=== PATIENT | female | born 1955 | race Asian ===

== ENCOUNTER 2016-12-15 10:29 | Outpatient (CLI) | payer OTHER ==
[2016-12-15 11:00] LABS: BASOPHILS % (AUTO) 0.5 %; EOSINOPHILS % (AUTO) 0.7 %; HCT - HEMATOCRIT 32.6 % (37.0-47.0); HGB - HEMOGLOBIN 10.7 g/dL (12.0-16.0); LYMPHOCYTES # (AUTO) 0.2 10^3/uL (1.5-3.5); LYMPHOCYTES % (AUTO) 3.6 %; MEAN CORPUSCULAR HEMOGLOBIN 30.3 pg (27.0-31.0); MEAN CORPUSCULAR HGB CONC 32.8 g/dL (32.0-36.0); MEAN CORPUSCULAR VOLUME 92.4 fL (81.0-99.0); MEAN PLATELET VOLUME 7.6 fL (7.9-10.8); MONOCYTES # (AUTO) 0.2 10^3/uL (0.0-1.0); MONOCYTES % (AUTO) 3.6 %; NEUTROPHILS # (AUTO) 5.5 10^3/uL (1.5-6.6); NEUTROPHILS % (AUTO) 91.6 %; RED BLOOD COUNT 3.53 10^6/uL (4.20-5.40); RED CELL DISTRIBUTION WIDTH 16.8 % (12.0-15.0)
[2016-12-15 11:01] LABS: BILIRUBIN,URINE NEGATIVE (NEGATIVE)
[2016-12-15 11:04] LABS: UA CHARGE (STRIP ONLY) YES; UR CULTURE IF IND NOT INDICATED
[2016-12-15 11:19] LABS: BILIRUBIN,TOTAL 0.4 mg/dL (0.2-1.0); CREATININE 1.1 mg/dL (0.4-1.0); POTASSIUM 4.2 mmol/L (3.5-5.0); TOTAL PROTEIN 7.1 g/dL (6.7-8.2)
== END 2016-12-15 10:30 | disposition home or self-care (01) ==
LOC: LAB 10:29
PROVIDERS: ATTEND Physician Assistant Medical
DX: R50.9 Fever, unspecified (principal)
CPT/HCPCS: 36415; 80053; 81001; 81003; 83690; 85025; 85651; 86140; 87040; 87086

== ENCOUNTER 2017-09-09 06:26 | Emergency (ER) | payer OTHER ==
[2017-09-09 07:03] LABS: BASOPHILS % (AUTO) 0.6 %; EOSINOPHILS % (AUTO) 0.6 %; LYMPHOCYTES # (AUTO) 0.2 10^3/uL (1.5-3.5); LYMPHOCYTES % (AUTO) 3.7 %; MEAN CORPUSCULAR HGB CONC 31.4 g/dL (32.0-36.0); MEAN CORPUSCULAR VOLUME 95.4 fL (81.0-99.0); MEAN PLATELET VOLUME 8.3 fL (7.9-10.8); MONOCYTES # (AUTO) 0.3 10^3/uL (0.0-1.0); MONOCYTES % (AUTO) 5.4 %; NEUTROPHILS # (AUTO) 5.6 10^3/uL (1.5-6.6); NEUTROPHILS % (AUTO) 89.7 %; PLT - PLATELET COUNT 252 10^3/uL (130-450); RED BLOOD COUNT 3.34 10^6/uL (4.20-5.40); RED CELL DISTRIBUTION WIDTH 16.1 % (12.0-15.0); WHITE BLOOD COUNT 6.2 x10^3/uL (4.8-10.8)
--- NOTE | 2017-09-09 07:26 | XRAY Preliminary Report ---
Exam: XR KNEE 2 VIEW RT IMPRESSION: 1. Moderate size joint effusion. Infection is not excluded. 2. Chondrocalcinosis in the lateral compartment. [facility] SITE ID: [id number]
--- NOTE | 2017-09-09 07:26 | XRAY Report ---
EXAM: RIGHT KNEE RADIOGRAPHY EXAM DATE: 09/09/2017 07:09 AM. CLINICAL HISTORY: Knee swelling. COMPARISON: None. TECHNIQUE: 2 views. FINDINGS: Bones: Normal. No fractures or bone lesions. Joints: Moderate size joint effusion. Chondrocalcinosis in the lateral compartment. Soft Tissues: Normal. No soft tissue swelling. IMPRESSION: 1. Moderate size joint effusion. Infection is not excluded. 2. Chondrocalcinosis in the lateral compartment. [facility] Referring Provider Line: [phone] SITE ID: [id number]
[2017-09-09 07:30] LABS: ALBUMIN 3.3 g/dL (3.2-5.5); ALBUMIN/GLOBULIN RATIO 0.9 (1.0-2.2); BILIRUBIN,TOTAL 0.5 mg/dL (0.2-1.0); CALCIUM 8.9 mg/dL (8.5-10.3); CREATININE 1.2 mg/dL (0.4-1.0); TOTAL PROTEIN 7.1 g/dL (6.7-8.2)
--- NOTE | 2017-09-09 08:09 | ED Physician Documentation ---
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 renal transplant on immunosuppressants to ER today with a sollen R knee X three days states hx of water on her knee and thinks she might have injured or tweaked it but there was erythema so she was concerned about infection, called her doctors at [facility] and directed to ED recent 1 night overstay at [facility] but otherwsise very active job walking all day long no calf pain or popliteal pain Review of Systems Constitutional: denies: Fever Cardiac: denies: Chest pain / pressure Respiratory: denies: Dyspnea Musculoskeletal: reports: Joint swelling Immunocompromised: reports: Immunocompromised PD PAST MEDICAL HISTORY - Past Medical History Past Medical History: Yes Cardiovascular: High cholesterol, Arrhythmia GI: Diverticulitis HEENT: Chronic vision loss Psych: Depression Musculoskeletal: Gout Derm: Eczema - Past Surgical History Past Surgical History: Yes General: Cholecystectomy HEENT: Tonsil/Adenoidectomy - Present Medications Home Medications: Ambulatory Orders Medication Instructions Recorded Confirmed Aspirin [Aspirin EC] 1 tab PO DAILY 09/09/17 09/09/17 Atorvastatin [Lipitor] 10 mg PO DAILY 09/09/17 09/09/17 Duloxetine HCl 60 mg PO DAILY 09/09/17 09/09/17 Krill/Om-3/Dha/Epa/Phospho/Ast 1 cap PO DAILY 09/09/17 09/09/17 [Krill Oil 500 mg Softgel] Omeprazole 20 mg PO BID 09/09/17 09/09/17 Prednisone 1 tab PO DAILY 09/09/17 09/09/17 Pregabalin [Lyrica] 50 mg PO DAILY PRN 09/09/17 09/09/17 Tracolimus 4 mg PO BID 09/09/17 azaTHIOprine [Azathioprine] 1 tab PO BID 09/09/17 09/09/17 - Allergies Allergies/Adverse Reactions: Allergies Allergy/AdvReac Type Severity Reaction Status Date / Time contrast dye Allergy Rash Uncoded 09/09/17 06:53 - Social History Does the pt smoke?: No Smoking Status: Never smoker Does the pt drink ETOH?: Yes Does the pt have substance abuse?: No - Immunizations Immunizations are current?: No Immunizations: TDAP >10years/unknown PD ED PE NORMAL - Vitals Vital signs reviewed: Yes - Cardiac Cardiac: RRR - Respiratory Respiratory: No respiratory distress, Clear bilaterally - Extremities Extremities: Other (R knee with moderate prepatellar and suprapatellar effusion , no popliteal TTP or cord, cald NT and not swollen, no erythema or warmth at thos time (there is a tlingit & haida drawn around where there was erythema earlier over the patella but it has resiolved), able to fully range the joint with no pain, MVS intact) Results - Vitals Vitals: Vital Signs - 24 hr 09/09/17 06:35 Temperature 37.1 C Heart Rate 68 Respiratory 18 Rate Blood Pressure 129/117 H O2 Saturation 100 Oxygen O2 Source Room air - Labs Labs: Laboratory Tests 09/09/17 09/09/17 09/09/17 06:58 06:58 06:58 WBC 6.2 RBC 3.34 L Hgb 10.0 L Hct 31.8 L MCV 95.4 MCH 30.0 MCHC 31.4 L RDW 16.1 H Plt Count 252 MPV 8.3 Neut # 5.6 Lymph # 0.2 L [place] # 0.3 Eos # 0.0 Baso # 0.0 Absolute Nucleated RBC 0.00 Nucleated RBC % 0.1 ESR 103 H Sodium 137 Potassium 4.8 Chloride 106 Carbon Dioxide 22 Anion Gap 9.0 BUN 36 H Creatinine 1.2 H Estimated GFR (MDRD) 46 L Glucose 129 H Calcium 8.9 Total Bilirubin 0.5 AST 11 ALT 10 Alkaline Phosphatase 109 C-Reactive Protein 7.0 H Total Protein 7.1 Albumin 3.3 Globulin 3.8 Albumin/Globulin Ratio 0.9 L Lipase 15 L - Rads (name of study) R knee Radiology: See rad report (moderate jt effusion, chondrolcalcinsosis lateral cmpt) PD MEDICAL DECISION MAKING - ED course ED course: based on exam pt does not have a septic knee or DVT being immunosuppressed infection is certainly a concern - but there is no fever no redness no warmth and good ROM s pain - not c/w septic knee and would risk introducing infection by tapping the knee in an immunopsupressed pt 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 a 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 but not seen the pt - ordered ESR and CRP which are very elevated but again clinically this does not look like cellulitis or a septic knee both pt and I are working today so I will check on her periodically but based on exam at this moment feel safe to dc Departure - Departure Disposition: 01 Home, Self Care Clinical Impression: Knee effusion, right Condition: Good Instructions: ED Effusion Knee Comments: Based on the exam it looks like you have an effusion in you knee joint but it does not appear infected at this time (not red or warm at this time and able to move the joint without significant pain or limitation) I am concerned that it was red last night and that some of your inflammatory markers are elevated. Based on the exam right now I would not recommend tapping the joint - this could introduce an infection since you are immune suppressed But if the redness comes back, please come see me In fact please let me take a look at you knee again before you go home from your shift today Wear the knee sleeve and apply some ice for 20 minutes every 4 hr today
[2017-09-09 08:40] VITALS: BP 133/78
== END 2017-09-09 08:39 | disposition home or self-care (01) ==
LOC: ED 06:26
DX: M25.461 Effusion, right knee (principal); Z94.0 Kidney transplant status; Z79.899 Other long term (current) drug therapy; E78.00 Pure hypercholesterolemia, unspecified; I49.9 Cardiac arrhythmia, unspecified; M10.9 Gout, unspecified; Z79.82 Long term (current) use of aspirin
CPT/HCPCS: 36415; 80053; 83690; 85025; 85651; 86140; 99283

== ENCOUNTER 2018-04-18 11:11 | Outpatient (CLI) | payer OTHER ==
[2018-04-18 13:55] LABS: CALCIUM 9.1 mg/dL (8.5-10.3); CREATININE 1.2 mg/dL (0.4-1.0)
== END 2018-04-18 11:12 | disposition home or self-care (01) ==
LOC: LAB.N 11:11
PROVIDERS: ATTEND Internal Medicine Nephrology
DX: Z94.0 Kidney transplant status (principal)
CPT/HCPCS: 36415; 80048

== ENCOUNTER 2018-04-20 07:23 | Outpatient (CLI) | payer OTHER ==
[2018-04-20 08:20] LABS: CALCIUM 9.3 mg/dL (8.5-10.3); CREATININE 1.1 mg/dL (0.4-1.0)
== END 2018-04-20 07:24 | disposition home or self-care (01) ==
LOC: LAB 07:23
PROVIDERS: ATTEND Internal Medicine Nephrology
DX: Z94.0 Kidney transplant status (principal)
CPT/HCPCS: 36415; 80048

== ENCOUNTER 2018-04-25 13:29 | Outpatient (CLI) | payer OTHER ==
[2018-04-25 13:58] LABS: CALCIUM 8.8 mg/dL (8.5-10.3)
== END 2018-04-25 13:30 | disposition home or self-care (01) ==
LOC: LAB 13:29
PROVIDERS: ATTEND Internal Medicine Nephrology
DX: Z94.0 Kidney transplant status (principal)
CPT/HCPCS: 36415; 80048

== ENCOUNTER 2018-08-08 08:00 | Outpatient (CLI) | payer BC, OTHER ==
[2018-08-08 16:27] LABS: BASOPHILS % (AUTO) 0.3 %; EOSINOPHILS % (AUTO) 0.1 %; HGB - HEMOGLOBIN 9.2 g/dL (12.0-16.0); LYMPHOCYTES # (AUTO) 0.2 10^3/uL (1.5-3.5); LYMPHOCYTES % (AUTO) 2.5 %; MEAN CORPUSCULAR HGB CONC 31.7 g/dL (32.0-36.0); MEAN CORPUSCULAR VOLUME 88.4 fL (81.0-99.0); MEAN PLATELET VOLUME 9.4 fL (7.9-10.8); MONOCYTES # (AUTO) 0.2 10^3/uL (0.0-1.0); MONOCYTES % (AUTO) 2.4 %; NEUTROPHILS # (AUTO) 6.4 10^3/uL (1.5-6.6); NEUTROPHILS % (AUTO) 94.7 %; PLT - PLATELET COUNT 244 10^3/uL (130-450); RED BLOOD COUNT 3.27 10^6/uL (4.20-5.40); RED CELL DISTRIBUTION WIDTH 16.8 % (12.0-15.0); WHITE BLOOD COUNT 6.8 x10^3/uL (4.8-10.8)
[2018-08-08 16:35] LABS: ALBUMIN 3.3 g/dL (3.2-5.5); ALBUMIN/GLOBULIN RATIO 0.8 (1.0-2.2); BILIRUBIN,TOTAL 0.2 mg/dL (0.2-1.0); CREATININE 1.1 mg/dL (0.4-1.0); CRP - C-REACTIVE PROTEIN 6.1 mg/dL (0-1.0); MAGNESIUM 1.9 mg/dL (1.7-2.8); TOTAL PROTEIN 7.4 g/dL (6.7-8.2)
== END 2018-08-08 23:59 ==
LOC: LAB.R 08:00
PROVIDERS: ATTEND Nurse Practitioner Primary Care
DX: R53.83 Other fatigue (principal); M25.511 Pain in right shoulder; M79.10 Myalgia, unspecified site
CPT/HCPCS: 80053; 83735; 85025; 85651; 86140

== ENCOUNTER 2018-08-15 08:00 | Outpatient (CLI) | payer BC ==
[2018-08-15 20:01] LABS: BASOPHILS % (AUTO) 0.4 %; HGB - HEMOGLOBIN 9.1 g/dL (12.0-16.0); LYMPHOCYTES # (AUTO) 0.2 10^3/uL (1.5-3.5); LYMPHOCYTES % (AUTO) 3.6 %; MEAN CORPUSCULAR HEMOGLOBIN 27.9 pg (27.0-31.0); MEAN CORPUSCULAR HGB CONC 30.7 g/dL (32.0-36.0); MEAN CORPUSCULAR VOLUME 90.8 fL (81.0-99.0); MEAN PLATELET VOLUME 8.9 fL (7.9-10.8); MONOCYTES # (AUTO) 0.3 10^3/uL (0.0-1.0); MONOCYTES % (AUTO) 4.8 %; NEUTROPHILS # (AUTO) 5.4 10^3/uL (1.5-6.6); NEUTROPHILS % (AUTO) 91.2 %; RED BLOOD COUNT 3.27 10^6/uL (4.20-5.40); RED CELL DISTRIBUTION WIDTH 17.3 % (12.0-15.0); WHITE BLOOD COUNT 5.9 x10^3/uL (4.8-10.8)
[2018-08-15 20:18] LABS: PLATELET ESTIMATE, MANUAL NORMAL (130-450,000) (NORMAL); PLATELET MORPHOLOGY PLATELET CLUMPING (NORMAL); RBC MORPHOLOGY (MULTIPLE) NORMAL APPEARANCE (NORMAL)
[2018-08-15 20:20] LABS: ALBUMIN 3.2 g/dL (3.2-5.5); ALBUMIN/GLOBULIN RATIO 0.8 (1.0-2.2); BILIRUBIN,TOTAL 0.5 mg/dL (0.2-1.0); CALCIUM 8.9 mg/dL (8.5-10.3); CREATININE 1.2 mg/dL (0.4-1.0); TOTAL PROTEIN 7.2 g/dL (6.7-8.2)
== END 2018-08-15 23:59 ==
LOC: LAB.N 08:00
PROVIDERS: ATTEND Internal Medicine Nephrology
DX: Z51.81 Encounter for therapeutic drug level monitoring (principal); Z09 Encounter for follow-up examination after completed treatment for conditions other than malignant neoplasm; Z94.0 Kidney transplant status
CPT/HCPCS: 36415; 80053; 85025

== ENCOUNTER 2018-08-17 08:25 | Outpatient (CLI) | payer BC ==
[2018-08-17 13:12] LABS: BILIRUBIN,URINE NEGATIVE (NEGATIVE); GLUCOSE, URINE (UA) NEGATIVE (NEGATIVE); KETONES,URINE (UA) NEGATIVE (NEGATIVE); LEUKOCYTE ESTERASE, URINE NEGATIVE (NEGATIVE); NITRITE,URINE NEGATIVE (NEGATIVE); OCCULT BLOOD,URINE NEGATIVE (NEGATIVE); PROTEIN,URINE NEGATIVE (NEGATIVE); UROBILINOGEN,URINE 0.2 (NORMAL) E.U./dL (NORMAL)
[2018-08-17 13:20] LABS: BACTERIA,URINE None Seen /HPF (None Seen); CLARITY,URINE CLEAR (CLEAR); RBC,URINE None Seen /HPF (0-5); SQUAMOUS EPITHELIAL CELL,UR NONE SEEN (<= Few)
== END 2018-08-17 08:26 | disposition home or self-care (01) ==
LOC: LAB 08:25
PROVIDERS: ATTEND Internal Medicine Nephrology
DX: Z51.81 Encounter for therapeutic drug level monitoring (principal); Z94.0 Kidney transplant status
CPT/HCPCS: 36415; 80197; 81001; 87086

== ENCOUNTER 2018-08-28 13:16 | Outpatient (CLI) | payer BC ==
[2018-08-28 13:45] LABS: CALCIUM 9.4 mg/dL (8.5-10.3)
[2018-08-28 16:03] LABS: CREATININE 1.4 mg/dL (0.4-1.0)
== END 2018-08-28 13:17 | disposition home or self-care (01) ==
LOC: LAB 13:16
PROVIDERS: ATTEND Internal Medicine Nephrology
DX: Z94.0 Kidney transplant status (principal)
CPT/HCPCS: 36415; 80048

== ENCOUNTER 2019-01-09 12:15 | Emergency (ER) | payer BC ==
[2019-01-09 12:56] LABS: BASOPHILS % (AUTO) 0.3 %; EOSINOPHILS % (AUTO) 0.1 %; HGB - HEMOGLOBIN 11.7 g/dL (12.0-16.0); LYMPHOCYTES # (AUTO) 0.3 10^3/uL (1.5-3.5); LYMPHOCYTES % (AUTO) 4.2 %; MEAN CORPUSCULAR HEMOGLOBIN 26.8 pg (27.0-31.0); MEAN CORPUSCULAR HGB CONC 28.9 g/dL (32.0-36.0); MEAN CORPUSCULAR VOLUME 92.7 fL (81.0-99.0); MEAN PLATELET VOLUME 11.6 fL (7.9-10.8); MONOCYTES # (AUTO) 0.3 10^3/uL (0.0-1.0); MONOCYTES % (AUTO) 3.3 %; NEUTROPHILS # (AUTO) 7.1 10^3/uL (1.5-6.6); NEUTROPHILS % (AUTO) 91.8 %; RED BLOOD COUNT 4.37 10^6/uL (4.20-5.40); RED CELL DISTRIBUTION WIDTH 16.1 % (12.0-15.0); WHITE BLOOD COUNT 7.7 x10^3/uL (4.8-10.8)
[2019-01-09 13:06] LABS: INR 1.3 (0.8-1.2)
[2019-01-09 13:10] LABS: ALBUMIN 4.4 g/dL (3.2-5.5); BILIRUBIN,TOTAL 0.7 mg/dL (0.2-1.0); CALCIUM 10.2 mg/dL (8.5-10.3); TOTAL PROTEIN 8.9 g/dL (6.7-8.2)
--- NOTE | 2019-01-09 13:36 | ED Physician Documentation ---
History of Present Illness - Stated complaint Stated Complaint: INTESTINAL DISTRESS - Chief complaint Chief Complaint: Abd Pain - History obtained from History obtained from: Patient - History of Present Illness Timing: How many days ago (3) Pain level max: 0 Pain level now: 0 - Additonal information Additional information: 63-year-old female presents to the emergency department with diarrhea for the past 3 days. States going 7-8 times per day. Today started having blood in the diarrhea. No fevers. She is immunocompromised. No abdominal pain. No vomiting. Nothing makes it better or worse. She did eat steak on Monday. Review of Systems Constitutional: denies: Fever, Chills Nose: denies: Rhinorrhea / runny nose, Congestion Cardiac: denies: Chest pain / pressure Respiratory: denies: Cough GI: reports: Diarrhea. 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 immuno suppressed r/t kidnew transplant - Past Surgical History Past Surgical History: Yes General: Cholecystectomy HEENT: Tonsil/Adenoidectomy - Present Medications Home Medications: Ambulatory Orders Medication Instructions Recorded Confirmed Aspirin [Aspirin EC] 1 tab PO DAILY 09/09/17 09/09/17 Atorvastatin [Lipitor] 10 mg PO DAILY 09/09/17 09/09/17 Duloxetine HCl 60 mg PO DAILY 09/09/17 09/09/17 Krill/Om-3/Dha/Epa/Phospho/Ast 1 cap PO DAILY 09/09/17 09/09/17 [Krill Oil 500 mg Softgel] Omeprazole 20 mg PO BID 09/09/17 09/09/17 Prednisone 1 tab PO DAILY 09/09/17 09/09/17 Pregabalin [Lyrica] 50 mg PO DAILY PRN 09/09/17 09/09/17 Tracolimus 4 mg PO BID 09/09/17 azaTHIOprine [Azathioprine] 1 tab PO BID 09/09/17 09/09/17 Ciprofloxacin HCl [Cipro] 500 mg PO BID #6 tablet 01/09/19 - Allergies Allergies/Adverse Reactions: Allergies Allergy/AdvReac Type Severity Reaction Status Date / Time contrast dye Allergy Rash Uncoded 09/09/17 06:53 - Social History Does the pt smoke?: No Smoking Status: Never smoker Does the pt drink ETOH?: Yes Does the pt have substance abuse?: No Substance Use and Type: Marijuana - Immunizations Immunizations are current?: Yes Immunizations: TDAP current <10years - POLST Patient has POLST: No PD ED PE NORMAL - Vitals Vital signs reviewed: Yes - General General: Alert and oriented X 3, No acute distress - HEENT HEENT: Moist mucous membranes - Neck Neck: Supple, no meningeal sign - Cardiac Cardiac: RRR - Respiratory Respiratory: No respiratory distress, Clear bilaterally - Abdomen Abdomen: Soft, Non tender, Non distended - Rectal Rectal: Pt declined - Back Back: No CVA TTP, No spinal TTP - Derm Derm: Warm and dry, No rash - Extremities Extremities: No calf tenderness / cord - Neuro Neuro: Alert and oriented X 3 - Psych Psych: Normal mood, Normal affect Results - Vitals Vitals: Vital Signs - 24 hr 01/09/19 01/09/19 01/09/19 12:22 12:55 13:25 Temperature 37.0 C Heart Rate 87 68 67 Respiratory 18 12 13 Rate Blood Pressure 121/77 102/73 115/64 O2 Saturation 100 98 97 01/09/19 13:30 Temperature Heart Rate 67 Respiratory 11 L Rate Blood Pressure 115/64 O2 Saturation 97 Oxygen O2 Source Room air - Labs Labs: Laboratory Tests 01/09/19 01/09/19 01/09/19 12:42 12:42 12:42 WBC 7.7 RBC 4.37 Hgb 11.7 L Hct 40.5 MCV 92.7 MCH 26.8 L MCHC 28.9 L RDW 16.1 H Plt Count MPV 11.6 H Neut # (Auto) 7.1 H Lymph # (Auto) 0.3 L [place] # (Auto) 0.3 Eos # (Auto) 0.0 Baso # (Auto) 0.0 Absolute Nucleated RBC 0.00 Nucleated RBC % 0.0 Manual Slide Review Indicated WBC Morphology NORMAL APPEARANCE Platelet Morphology PLATELET CLUMPING RBC Morph Micro Appear SCHISTOCYTES PT INR APTT Sodium 140 Potassium 4.0 Chloride 101 Carbon Dioxide 25 Anion Gap 14.0 H BUN 26 H Creatinine 1.0 Estimated GFR (MDRD) 56 L Glucose 129 H Calcium 10.2 Total Bilirubin 0.7 AST 13 ALT 13 Alkaline Phosphatase 107 Total Protein 8.9 H Albumin 4.4 Globulin 4.5 H Albumin/Globulin Ratio 1.0 Lipase 208 H Blood Type A POSITIVE Antibody Screen NEGATIVE 01/09/19 12:42 WBC RBC Hgb Hct MCV MCH MCHC RDW Plt Count MPV Neut # (Auto) Lymph # (Auto) [place] # (Auto) Eos # (Auto) Baso # (Auto) Absolute Nucleated RBC Nucleated RBC % Manual Slide Review WBC Morphology Platelet Morphology RBC Morph Micro Appear PT 14.0 H INR 1.3 H APTT 41.0 H Sodium Potassium Chloride Carbon Dioxide Anion Gap BUN Creatinine Estimated GFR (MDRD) Glucose Calcium Total Bilirubin AST ALT Alkaline Phosphatase Total Protein Albumin Globulin Albumin/Globulin Ratio Lipase Blood Type Antibody Screen PD MEDICAL DECISION MAKING - ED course Complexity details: reviewed results, re-evaluated patient, considered differential (No evidence of diverticulitis, perforation, abscess, bowel obstruction), d/w patient ED course: 63-year-old female with diarrhea for the past 3 days. Given her immunocompromise status, will place on a short course of ciprofloxacin. She is well-appearing, nontoxic. Afebrile. No acute laboratory abnormalities other than a mildly elevated lipase. No diarrhea in the emergency department. Patient counseled regarding signs and symptoms for which I believe and urgent re-evaluation would be necessary. Patient with good understanding of and ag reement to plan and is comfortable going home at this time This document was made in part using voice recognition software. While efforts are made to proofread this document, sound alike and grammatical errors may occur. Abdomen is soft, nontender nondistended on serial exam. Departure - Departure Disposition: 01 Home, Self Care Clinical Impression: Hematochezia Diarrhea Qualifiers: Diarrhea type: unspecified type Qualified Code(s): R19.7 - Diarrhea, unspecified Condition: Good Instructions: ED Diarrhea Bacterial Follow-Up: your,doctor in 3 days if not better [Other] Prescriptions: Ciprofloxacin HCl [Cipro] 500 mg PO BID #6 tablet Comments: Use the ciprofloxacin as prescribed. Return if you worsen. Take all antibiotics until gone. This should improve in the next 24 to 48 hours. Discharge Date/Time: 01/09/19 14:20
[2019-01-09 14:11] LABS: PLATELET MORPHOLOGY PLATELET CLUMPING (NORMAL)
[2019-01-09 14:12] LABS: RBC MORPHOLOGY (MULTIPLE) SCHISTOCYTES (NORMAL)
[2019-01-09 14:19] VITALS: BP 115/64
== END 2019-01-09 14:20 | disposition home or self-care (01) ==
LOC: ED 12:15
DX: K92.1 Melena (principal); Z94.0 Kidney transplant status
CPT/HCPCS: 36415; 80053; 83690; 85025; 85610; 85730; 86850; 86900; 86901; 99283

== ENCOUNTER 2019-05-24 15:48 | Emergency (ER) | payer BC ==
--- NOTE | 2019-05-24 16:08 | ED Physician Documentation ---
PD HPI HEAD INJURY - Stated complaint Stated Complaint: GLF - HEADACHE - Chief complaint Chief Complaint: Neuro - History obtained from History obtained from: Patient - History of Present Illness Mechanism of head injury: Fell Where head injury occurred: Home Timing - onset: How many weeks ago (1) Pain level max: 7 Pain level now: 7 Quality of pain: Pain, Aching, Dull Associated symptoms: No: LOC, AMS, Amnesia, Nausea / vomiting, Neck pain, Paresthesias, Seizures, Ear drainage, Nasal drainage Symptoms improve with: Rest Symptoms worsen with: Movement Contributing factors: No: Anticoagulated, Intoxicated Recently seen: Not recently seen - Additional information Additional information: fall 1 week ago, continued headache. 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 HEENT: Chronic vision loss Psych: Depression Musculoskeletal: None Derm: Eczema, Psoriasis - Past Surgical History Past Surgical History: Yes General: Cholecystectomy HEENT: Tonsil/Adenoidectomy - Present Medications Home Medications: Ambulatory Orders Medication Instructions Recorded Confirmed Aspirin [Aspirin EC] 1 tab PO DAILY 09/09/17 09/09/17 Atorvastatin [Lipitor] 10 mg PO DAILY 09/09/17 09/09/17 Duloxetine HCl 60 mg PO DAILY 09/09/17 09/09/17 Krill/Om-3/Dha/Epa/Phospho/Ast 1 cap PO DAILY 09/09/17 09/09/17 [Krill Oil 500 mg Softgel] Omeprazole 20 mg PO BID 09/09/17 09/09/17 Prednisone 1 tab PO DAILY 09/09/17 09/09/17 Pregabalin [Lyrica] 50 mg PO DAILY PRN 09/09/17 09/09/17 Tracolimus 4 mg PO BID 09/09/17 azaTHIOprine [Azathioprine] 1 tab PO BID 09/09/17 09/09/17 Ciprofloxacin HCl [Cipro] 500 mg PO BID #6 tablet 01/09/19 Butalb/Acetaminophen/Caffeine 1 cap PO Q6H PRN #14 capsule 05/24/19 [Fioricet 50-300-40 mg Capsule] - Allergies Allergies/Adverse Reactions: Allergies Allergy/AdvReac Type Severity Reaction Status Date / Time contrast dye Allergy Rash Uncoded 05/24/19 15:56 - Social History Does the pt smoke?: No Smoking Status: Never smoker Does the pt drink ETOH?: Yes Does the pt have substance abuse?: No - Immunizations Immunizations are current?: Yes Immunizations: TDAP current <10years - POLST Patient has POLST: No PD ED PE NORMAL - Vitals Vital signs reviewed: Yes - General General: Alert and oriented X 3, No acute distress, Well developed/nourished - HEENT HEENT: Atraumatic, PERRL, EOMI, Ears normal, Moist mucous membranes - Neck Neck: Supple, no meningeal sign, No bony TTP - Cardiac Cardiac: RRR, Strong equal pulses - Respiratory Respiratory: No respiratory distress, Clear bilaterally - Abdomen Abdomen: Normal bowel sounds, Soft, Non tender, Non distended - Derm Derm: Warm and dry - Extremities Extremities: No edema - Neuro Neuro: Alert and oriented X 3, 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, No motor deficit, No sensory deficit, Normal speech Eye Opening: Spontaneous Motor: Obeys Commands Verbal: Oriented GCS Score: 15 - Psych Psych: Normal mood, Normal affect Results - Vitals Vitals: Vital Signs - 24 hr 05/24/19 05/24/19 15:52 17:26 Temperature 36.8 C 37.4 C Heart Rate 70 69 Respiratory 16 18 Rate Blood Pressure 138/69 H 127/69 O2 Saturation 100 98 Oxygen O2 Source Room air - Rads (name of study) head ct Radiology: Prelim report reviewed, EMP read contemporaneously, See rad report (No acute intracranial abnormality) PD MEDICAL DECISION MAKING - ED course Complexity details: reviewed results, considered differential, d/w patient ED course: No acute findings on head CT. Given Fioricet and Toradol. Headache improved. Patient counseled regarding signs and symptoms for which I believe and urgent re-evaluation would be necessary. Patient with good understanding of and agreement to plan and is comfortable going home at this time This document was made in part using voice recognition software. While efforts are made to proofread this document, sound alike and grammatical errors may occur. Departure - Departure Disposition: Home, Self Care Clinical Impression: Headache Qualifiers: Headache type: post-traumatic Headache chronicity pattern: acute headache Intractability: not intractable Qualified Code(s): G44.319 - Acute post- traumatic headache, not intractable Condition: Good Instructions: ED Cephalgia Unspecified Follow-Up: Rani Velez DO [Primary Care Provider] - Within 1 week Prescriptions: Butalb/Acetaminophen/Caffeine [Fioricet 50-300-40 mg Capsule] 1 cap PO Q6H PRN #14 capsule PRN Reason: headache Comments: Return if you worsen. Follow-up with your doctor for further care. Your CT scan is normal today. Discharge Date/Time: 05/24/19 17:28
--- NOTE | 2019-05-24 16:12 | CT Report ---
Reason: fall, headache Procedure Date: 05/24/2019 Accession Number: [id number] / [id number] Procedure: CT - HEAD WO CPT Code: Final Report FULL RESULT: EXAM: CT HEAD EXAM DATE: 05/24/2019 04:01 PM. CLINICAL HISTORY: Fall, headache. COMPARISON: None. TECHNIQUE: Multiaxial CT images were obtained from the foramen magnum to the vertex. Reformats: Sagittal and coronal. IV contrast: None. In accordance with CT protocol optimization, one or more of the following dose reduction techniques were utilized for this exam: automated exposure control, adjustment of mA and/or KV based on patient size, or use of iterative reconstructive technique. FINDINGS: Parenchyma: No intraparenchymal hemorrhage. No evidence of mass, midline shift, or CT findings of infarction. Moser-white differentiation is distinct. Extraaxial Spaces: Normal for age. No subdural or epidural collections identified. Ventricles: Normal in size and position. Sinuses and Orbits: Sclerosis of right mastoid air cells noted. Rest of theimaged paranasal sinuses, orbits, and mastoids show no significant abnormality. Bones: No evidence of fracture or calvarial defect. Other: None. IMPRESSION: No acute traumatic intra-cranial abnormality. [facility]
[2019-05-24] MEDS ORDERED: BUTALB/ACETAM/CAFF 50/325/40MG TABLET PO STA (16:25)
[2019-05-24] MEDS ORDERED: KETOROLAC 60 MG/2 ML VIAL IM STA (16:25)
[2019-05-24 17:28] VITALS: BP 127/69
== END 2019-05-24 17:28 | disposition home or self-care (01) ==
LOC: ED 15:48
DX: G44.319 Acute post-traumatic headache, not intractable (principal)
CPT/HCPCS: 70450; 96372; 99284; A9270

== ENCOUNTER 2019-07-30 09:43 | Outpatient (CLI) | payer BC ==
[2019-07-30 10:11] LABS: BASOPHILS % (AUTO) 0.6 %; EOSINOPHILS % (AUTO) 0.3 %; HGB - HEMOGLOBIN 12.7 g/dL (12.0-16.0); LYMPHOCYTES # (AUTO) 0.4 10^3/uL (1.5-3.5); LYMPHOCYTES % (AUTO) 5.1 %; MEAN CORPUSCULAR HEMOGLOBIN 29.3 pg (27.0-31.0); MEAN CORPUSCULAR HGB CONC 30.2 g/dL (32.0-36.0); MEAN CORPUSCULAR VOLUME 96.8 fL (81.0-99.0); MEAN PLATELET VOLUME 9.9 fL (7.9-10.8); MONOCYTES # (AUTO) 0.2 10^3/uL (0.0-1.0); MONOCYTES % (AUTO) 3.1 %; NEUTROPHILS # (AUTO) 6.4 10^3/uL (1.5-6.6); NEUTROPHILS % (AUTO) 90.3 %; PLT - PLATELET COUNT 186 10^3/uL (130-450); RED BLOOD COUNT 4.34 10^6/uL (4.20-5.40); RED CELL DISTRIBUTION WIDTH 13.9 % (12.0-15.0); WHITE BLOOD COUNT 7.1 x10^3/uL (4.8-10.8)
[2019-07-30 10:51] LABS: ALBUMIN 4.3 g/dL (3.2-5.5); ALBUMIN/GLOBULIN RATIO 1.1 (1.0-2.2); ALKALINE PHOSPHATASE 87 IU/L (42-121); ALT ALANINE AMINOTRANSFERASE 14 IU/L (10-60); AST ASPARTATE AMINOTRANSFERASE 14 IU/L (10-42); BILIRUBIN,TOTAL 0.8 mg/dL (0.2-1.0); BUN - BLOOD UREA NITROGEN 25 mg/dL (6-20); CALCIUM 9.4 mg/dL (8.5-10.3); CARBON DIOXIDE - CO2 27 mmol/L (21-32); CHLORIDE 102 mmol/L (101-111); CHOLESTEROL 151 mg/dL; CREATININE 0.9 mg/dL (0.4-1.0); GFR - MDRD 63 (>89); GLUCOSE 128 mg/dL (70-100); HDL CHOLESTEROL 51 mg/dL; LDL CHOLESTEROL,CALCULATED 81 mg/dL; LDL/HDL RATIO 1.6 (<4.4); SODIUM 140 mmol/L (135-145); TOTAL PROTEIN 8.1 g/dL (6.7-8.2); VLDL CHOLESTEROL 19 mg/dL
== END 2019-07-30 09:44 | disposition home or self-care (01) ==
LOC: LAB 09:43
PROVIDERS: ATTEND Nurse Practitioner
DX: Z79.899 Other long term (current) drug therapy (principal); M54.9 Dorsalgia, unspecified; G89.29 Other chronic pain; R50.9 Fever, unspecified; R53.83 Other fatigue; F32.9 Major depressive disorder, single episode, unspecified
CPT/HCPCS: 36415; 80053; 80061; 83721; 84443; 85025; 85651; 86140

== ENCOUNTER 2020-01-17 17:10 | Outpatient (CLI) | payer BC ==
[2020-01-17 18:56] LABS: BASOPHILS % (AUTO) 0.4 %; EOSINOPHILS % (AUTO) 0.1 %; HGB - HEMOGLOBIN 12.7 g/dL (12.0-16.0); LYMPHOCYTES # (AUTO) 0.5 10^3/uL (1.5-3.5); LYMPHOCYTES % (AUTO) 6.8 %; MEAN CORPUSCULAR HEMOGLOBIN 30.7 pg (27.0-31.0); MEAN CORPUSCULAR HGB CONC 31.8 g/dL (32.0-36.0); MEAN CORPUSCULAR VOLUME 96.6 fL (81.0-99.0); MEAN PLATELET VOLUME 11.1 fL (7.9-10.8); MONOCYTES # (AUTO) 0.4 10^3/uL (0.0-1.0); MONOCYTES % (AUTO) 5.9 %; NEUTROPHILS % (AUTO) 86.7 %; RED BLOOD COUNT 4.14 10^6/uL (4.20-5.40); WHITE BLOOD COUNT 6.9 x10^3/uL (4.8-10.8)
[2020-01-17 18:59] LABS: ALBUMIN 3.8 g/dL (3.2-5.5); ALBUMIN/GLOBULIN RATIO 1.1 (1.0-2.2); BILIRUBIN,TOTAL 1.1 mg/dL (0.2-1.0); TOTAL PROTEIN 7.4 g/dL (6.7-8.2); URIC ACID 5.4 mg/dL (2.6-7.2)
[2020-01-17 19:17] LABS: PLATELET ESTIMATE, MANUAL NORMAL (130-450,000) (NORMAL); PLATELET MORPHOLOGY PLATELET CLUMPING (NORMAL); RBC MORPHOLOGY (MULTIPLE) NORMAL APPEARANCE (NORMAL)
== END 2020-01-17 23:59 | disposition home or self-care (01) ==
LOC: LAB.WCP 17:10
PROVIDERS: ATTEND Physician Assistant
DX: L03.90 Cellulitis, unspecified (principal); M10.9 Gout, unspecified
CPT/HCPCS: 36415; 80053; 84550; 85025

== ENCOUNTER → 2020-04-01 | Outpatient (CLI) | payer BC ==
[2020-04-01 18:31] LABS: BASOPHILS % (AUTO) 0.5 %; EOSINOPHILS % (AUTO) 0.2 %; HGB - HEMOGLOBIN 12.7 g/dL (12.0-16.0); LYMPHOCYTES # (AUTO) 0.3 10^3/uL (1.5-3.5); LYMPHOCYTES % (AUTO) 5.8 %; MEAN CORPUSCULAR HEMOGLOBIN 30.2 pg (27.0-31.0); MEAN CORPUSCULAR HGB CONC 30.7 g/dL (32.0-36.0); MEAN CORPUSCULAR VOLUME 98.3 fL (81.0-99.0); MEAN PLATELET VOLUME 12.1 fL (7.9-10.8); MONOCYTES # (AUTO) 0.2 10^3/uL (0.0-1.0); MONOCYTES % (AUTO) 3.6 %; NEUTROPHILS # (AUTO) 5.2 10^3/uL (1.5-6.6); NEUTROPHILS % (AUTO) 89.7 %; PLT - PLATELET COUNT 65 10^3/uL (130-450); RED BLOOD COUNT 4.21 10^6/uL (4.20-5.40); RED CELL DISTRIBUTION WIDTH 13.9 % (12.0-15.0); WHITE BLOOD COUNT 5.8 x10^3/uL (4.8-10.8)
[2020-04-01 19:05] LABS: % IRON SATURATION 11 % (20-50); ALBUMIN 4.2 g/dL (3.2-5.5); ALBUMIN/GLOBULIN RATIO 1.3 (1.0-2.2); ALKALINE PHOSPHATASE 83 IU/L (42-121); ALT ALANINE AMINOTRANSFERASE 12 IU/L (10-60); AST ASPARTATE AMINOTRANSFERASE 11 IU/L (10-42); BILIRUBIN,TOTAL 0.9 mg/dL (0.2-1.0); BUN - BLOOD UREA NITROGEN 28 mg/dL (6-20); CALCIUM 9.2 mg/dL (8.5-10.3); CARBON DIOXIDE - CO2 29 mmol/L (21-32); CHLORIDE 103 mmol/L (101-111); CHOL/HDL RATIO 2.7 (<4.4); CHOLESTEROL 146 mg/dL; GLUCOSE 114 mg/dL (70-100); HDL CHOLESTEROL 55 mg/dL; IRON 28 ug/dL (28-170); LDL CHOLESTEROL,CALCULATED 77 mg/dL; LDL/HDL RATIO 1.4 (<4.4); SODIUM 140 mmol/L (135-145); TOTAL IRON BINDING CAPACITY 251 ug/dL (250-450); TOTAL PROTEIN 7.4 g/dL (6.7-8.2); TRANSFERRIN 179 mg/dL (192-382); VLDL CHOLESTEROL 14 mg/dL
[2020-04-01 19:14] LABS: FERRITIN 145.8 ng/mL (11.0-306.8)
== END ==
LOC: LAB.WCP 11:20
PROVIDERS: ATTEND Nurse Practitioner
DX: Z00.00 Encounter for general adult medical examination without abnormal findings (principal); R73.01 Impaired fasting glucose; R53.83 Other fatigue; Z79.899 Other long term (current) drug therapy; F32.9 Major depressive disorder, single episode, unspecified
CPT/HCPCS: 36415; 80053; 80061; 82728; 83540; 83721; 84443; 84466; 85025

== ENCOUNTER 2020-04-30 21:04 | Outpatient (CLI) | payer BC | END 2020-04-30 21:05 | disposition home or self-care (01) | LOC: COV 21:04 | PROVIDERS: ATTEND Family Medicine | DX: R50.9 Fever, unspecified (principal); M79.10 Myalgia, unspecified site; R53.83 Other fatigue; Z20.828 Contact with and (suspected) exposure to other viral communicable diseases ==

== ENCOUNTER 2020-05-05 08:00 | Outpatient (CLI) | payer BC ==
[2020-05-05 18:06] LABS: BASOPHILS % (AUTO) 0.4 %; EOSINOPHILS % (AUTO) 0.3 %; LYMPHOCYTES # (AUTO) 0.3 10^3/uL (1.5-3.5); LYMPHOCYTES % (AUTO) 4.8 %; MEAN CORPUSCULAR HEMOGLOBIN 28.9 pg (27.0-31.0); MEAN CORPUSCULAR HGB CONC 30.1 g/dL (32.0-36.0); MEAN CORPUSCULAR VOLUME 96.1 fL (81.0-99.0); MEAN PLATELET VOLUME 11.8 fL (7.9-10.8); MONOCYTES # (AUTO) 0.3 10^3/uL (0.0-1.0); NEUTROPHILS # (AUTO) 6.1 10^3/uL (1.5-6.6); NEUTROPHILS % (AUTO) 90.1 %; PLT - PLATELET COUNT 107 10^3/uL (130-450); RED BLOOD COUNT 3.81 10^6/uL (4.20-5.40); RED CELL DISTRIBUTION WIDTH 13.2 % (12.0-15.0); WHITE BLOOD COUNT 6.7 x10^3/uL (4.8-10.8)
[2020-05-05 18:44] LABS: FERRITIN 182.8 ng/mL (11.0-306.8)
[2020-05-05 18:45] LABS: % IRON SATURATION 3 % (20-50); ALBUMIN 3.4 g/dL (3.2-5.5); ALBUMIN/GLOBULIN RATIO 0.9 (1.0-2.2); ALKALINE PHOSPHATASE 127 IU/L (42-121); ALT ALANINE AMINOTRANSFERASE 15 IU/L (10-60); AST ASPARTATE AMINOTRANSFERASE 14 IU/L (10-42); BILIRUBIN,TOTAL 0.7 mg/dL (0.2-1.0); BUN - BLOOD UREA NITROGEN 19 mg/dL (6-20); CARBON DIOXIDE - CO2 29 mmol/L (21-32); CHLORIDE 101 mmol/L (101-111); CHOL/HDL RATIO 3.3 (<4.4); CHOLESTEROL 136 mg/dL; CREATININE 0.8 mg/dL (0.4-1.0); CRP - C-REACTIVE PROTEIN 10.2 mg/dL (0-1.0); GLUCOSE 127 mg/dL (70-100); HDL CHOLESTEROL 41 mg/dL; IRON 6 ug/dL (28-170); LDL CHOLESTEROL,CALCULATED 80 mg/dL; SODIUM 141 mmol/L (135-145); TOTAL IRON BINDING CAPACITY 217 ug/dL (250-450); TOTAL PROTEIN 7.3 g/dL (6.7-8.2); TRANSFERRIN 155 mg/dL (192-382); VLDL CHOLESTEROL 15 mg/dL
== END 2020-05-05 23:59 | disposition home or self-care (01) ==
LOC: LAB.WCP 08:00
PROVIDERS: ATTEND Nurse Practitioner
DX: Z00.00 Encounter for general adult medical examination without abnormal findings (principal); R73.01 Impaired fasting glucose; R10.11 Right upper quadrant pain; R50.9 Fever, unspecified; R53.83 Other fatigue; Z79.899 Other long term (current) drug therapy; F32.9 Major depressive disorder, single episode, unspecified
CPT/HCPCS: 36415; 80053; 80061; 82728; 83540; 83721; 84443; 84466; 85025; 85651; 86140

== ENCOUNTER 2020-05-14 12:09 | Outpatient (CLI) | payer BC ==
[~2020-05-14 12:09] MED LIST: IOVERSOL 320 100 ML VIAL IVP ONE; IOVERSOL 320 50 ML VIAL ONE; SODIUM CHLORIDE 0.9% 1,000 ML IV ONE; SODIUM CHLORIDE FLUSH 0.9% 10 ML SYRINGE ONE
--- NOTE | 2020-05-14 12:21 | CT Report ---
PROCEDURE: Abdomen/Pelvis W INDICATIONS: FEVER, RUQ PAIN CONTRAST: IV CONTRAST: Optiray 320 ml: 60 PO CONTRAST: Optiray 320 ml50 TECHNIQUE: After the administration of intravenous and oral contrast, 5 mm thick sections acquired from the diap hragms to the symphysis. 5 mm thick coronal and sagittal reformats were acquired. For radiation dos e reduction, the following was used: automated exposure control, adjustment of mA and/or kV accordin g to patient size. COMPARISON: [facility] CT abdomen pelvis 06/06/2017. FINDINGS: Image quality: Excellent. ABDOMEN: Lung bases: There is mild atelectasis or scarring in the lung bases. Heart size is normal. Solid organs: Numerous hepatic cysts of varying sizes are redemonstrated throughout the liver consist ent with history of polycystic kidney disease. The gallbladder is surgically absent. Postsurgical josafat nges are demonstrated consistent with history of hepaticojejunostomy. Mild pneumobilia is redemonstra hansel consistent with postsurgical change with mild intrahepatic biliary ductal dilatation. Findings ar e similar to the prior study. There is mild pancreatic duct dilatation, measuring up to approximately 0.5 cm which appears slightly increased from the prior study. No peripancreatic fat stranding or flu id collections. Spleen is mildly enlarged, measuring up to 14 cm. No adrenal nodules. The right kidne y is surgically absent. Numerous cysts are redemonstrated within the left kidney consistent with hist ory of polycystic kidney disease. There is mild enhancement of the tanana left kidney. A right lower quadrant transplant kidney is redemonstrated which demonstrates normal enhancement. No hydronephrosis . Peritoneum and bowel: Postsurgical changes are redemonstrated consistent with prior Nash-en-Y hepati cojejunostomy. Bowel loops demonstrate normal wall thickness and caliber without evidence of obstruct ion. There is colonic diverticulosis without acute diverticulitis. There is a small amount of intrap eritoneal free fluid. No free air. Nodes and vessels: No retroperitoneal or mesenteric adenopathy by size criteria. Aorta and inferior vena cava are normal in size. Miscellaneous: No ventral hernias. PELVIS: Genitourinary: Bladder wall thickness is normal. There is a loculated fluid collection redemonstrate d within the right hemipelvis measuring up to 8.2 x 6.3 cm, similar in size compared to the prior elizabeth dy. There are coarse calcifications redemonstrated in the left hemipelvis along the uterus likely rep resenting exophytic calcified fibroid Miscellaneous: No inguinal hernias or adenopathy. Bones: No suspicious bony lesions. There is a levoscoliosis of the thoracolumbar spine centered at L 2-L3. No vertebral body compression fractures. IMPRESSION: 1. No definite acute intra-abdominal abnormality to correlate with patient's right upper quadrant mariama n. 2. Postsurgical changes consistent with prior hepaticojejunostomy redemonstrated with mild intrahepat ic biliary ductal dilatation and pneumobilia which appear similar to the prior study. 3. No evidence of bowel obstruction or definite acute inflammatory changes in the bowel. 4. Transplant kidney redemonstrated in the right lower quadrant without evidence of hydronephrosis. N o CT evidence of pyelonephritis. 5. Small amount of nonspecific intraperitoneal free fluid may be reactive. 6. Colonic diverticulosis without acute diverticulitis. 7. Stable cystic structure in the right hemipelvis. Reviewed by: Villa Reed MD on 05/14/2020 12:20 PM PST Approved by: Villa Reed MD on 05/14/2020 12:20 PM PST Station ID: [id number]
== END 2020-05-14 12:10 | disposition home or self-care (01) ==
LOC: DI 12:09
PROVIDERS: ATTEND Nurse Practitioner
DX: R50.9 Fever, unspecified (principal); R10.11 Right upper quadrant pain
CPT/HCPCS: 74177; Q9967

== ENCOUNTER 2020-09-16 10:56 | Outpatient (CLI) | payer BC ==
--- NOTE | 2020-09-16 11:46 | SLEEP CARE CONSULTATION ---
Information from patient questionnaire entered by Althea Donald. I have reviewed and concur with the information entered by Althea Donald. This document represents the service I personally performed and the decisions made by me, Elizabeth Xiong ARNP. History of Present Illness Service Date and Time: 09/16/2020 1056 Reason for Visit: New patient Chief Complaint: reports: Unrefreshed sleep, Snoring, Excessive daytime sleepiness, Observed pauses in breathing, Fatigue Date of Onset: snoring - 35 years Usual bedtime: 10ish pm Time it takes to fall asleep: 5 minutes Snores at night: Yes Observed to quit breathing while asleep: Yes (occassionally) Sleeps alone due to snoring: No Number of times waking at night: 0-1 Reasons for waking at night: reports: Snoring, Bathroom, Other (dry mouth and very hot) Toss, Turn, or Twitch while sleeping: Yes Recalls having dreams: Yes (sometimes) Usually gets out of bed at: 6-8 am Feels refreshed in the morning: Yes (somewhat) Morning headache: No Sleepy or fatigued during the day: Yes Ever fallen asleep while driving: No Takes day naps: Yes (sometimes; 2-3 times weekly, for about 2 hours) Dreams during day naps: No Prior sleep studies: No Additional HPI information: I had the pleasure of seeing TAMARA DUPONT today regarding the possibility of her having a sleep disorder. Her current complaints are unrefreshed sleep, snoring, excessive daytime sleepiness, fatigue and observed pauses in breathing. She has always snored but more recently her snoring is worse and she wakes up with her mouth very dry. She states sometimes she feels she is struggling to breathe like she "skipped a breath" while sleeping. She has a history of kidney transplant. - Parasomnia Symptoms Ever been unable to move upon waking from sleep: No Walks in sleep: No Talks in sleep: Yes Ever acted out dreams in sleep: No Ever felt weak in the knees when startled or emotional: No Bothered by creepy, crawly, restless sensations in legs: Yes (sometimes, just before going to bed, not when get in bed) Problems with memory or concentration: Yes (both, memory a bit more) Subjective Initial [place] Sleepiness Scale score: 18 (in 2020) Past Medical History Past Medical History: reports: Arthritis, Anemia, Anxiety, Depression, GERD, Other (kidney transplant) Social History 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 Patient is and lives in [place]. Have you smoked in the past 12 months: No Cigarettes per day (20/pack): 10 Years of smokin Quit date: 1994 Smoking Pack Years: 10.0 Alcohol use: Yes Alcohol amount and frequency: 2 times a month Caffeine use: Yes Caffeine amount and frequency: 1-2 cups coffee in the AM Family History Family history of sleep disordered breathing: No (don't know) Allergies and Home Medications Drug allergies reviewed: Yes (see list in chart) Home medication list reviewed: Yes Allergy and home medication list: Ketoconazole cream 2% as needed Ipratropium [place] COQ10 Fish oil Duloxetine Amytriptyline Omeprazole Atorvastatin mycophenolic acid Tacrolimus Ferrous Sulfate Vitamin C Vitamin D3 Acyclovir Ondansetron Vitamin B12 Prednisone Fludrocortisone Doxycycline Hydrocodone acetaminophen Tylenol Diphenhydramine Review of Systems Cardiovascular: reports: other (heart murmur). denies: high blood pressure Gastrointestinal: reports: heartburn, nausea, abdominal pain Urinary: reports: urgency Neurological: reports: gait or balance problems Psychiatric: reports: anxiety, depression Ear/Nose/Throat: reports: sinus problems, dry mouth/throat, tonsillectomy, wisdom teeth removed Endocrine: reports: too hot or cold Musculoskeletal: reports: joint pain, back pain Immunologic: reports: sneezing, itching, other (seriated septum) Physical Exam Blood Pressure: 121/81 Cuff size: regular Heart Rate: 86 O2 Saturation: 97 Height: 5 ft 6.75 in Weight: 113 lb 12.8 oz Body Mass Index: 17.9 BMI Classification: Underweight Nostrils: patent to airflow Mouth and throat: narrow oropharynx Soft palate: long Hard palate: normal Uvula: normal Uvula visualization: 100% Mallampati Class I Tongue: enlarged in size with teeth hensley on lateral edges Tonsils: absent bilaterally Neck: normal w/o lymphadenopathy or thyromegaly Heart: regular rate and rhythm Lungs: clear bilaterally Impression and Plan 1. Suspected Obstructive Sleep Apnea-Hypopnea Syndrome, as suggested by a history of loud and irregular snoring, observed cessation of breath while asleep, unrefreshed sleep, cognitive impairment, and excessive daytime sleepiness. Narrow oropharynx and obesity are common predisposing factors for obstructive sleep apnea-hypopnea syndrome. I recommend proceeding to polysomnography to confirm the diagnosis and to assess severity. If the patient has significant sleep disordered breathing, a manual CPAP titration study will also be performed to find the optimal treatment pressure. I informed the patient of what the sleep studies involve and after some discussion, obtained agreement to proceed. The pathophysiology of obstructive sleep apnea-hypopnea syndrome was discussed with the patient and health risks of cardiovascular and cerebrovascular disease if not treated. 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 Patient agreed to plan. * Schedule polysomnography +- manual CPAP titration study and return in 1-2 weeks after the study to discuss result and initiate therapy. * Avoid long distance driving or driving when feeling sleepy. * Avoid alcohol, sedative and muscle relaxant around bedtime. * Attempt to lose weight. * Review instructions provided by trained office staff on how to prepare for the sleep study. * Return for follow-up after sleep study completed. Counseling Topics: Weight control Visit Type: In Office Time Spent with Patient (minutes): 31 Provider Statement: I spent 100% of the Face to Face Visit with the patient with greater than 50% spent counseling the patient and coordination of care.
[2020-09-16 11:47] VITALS: BP 121/81
== END 2020-09-16 10:57 | disposition home or self-care (01) ==
LOC: SC 10:56
PROVIDERS: ATTEND Nurse Practitioner Family
DX: G47.10 Hypersomnia, unspecified (principal); R06.83 Snoring; G47.8 Other sleep disorders; R06.81 Apnea, not elsewhere classified; R41.89 Other symptoms and signs involving cognitive functions and awareness
CPT/HCPCS: 99203; 99212

== ENCOUNTER 2020-09-22 08:54 | Outpatient (CLI) | payer BC | END 2020-09-22 08:55 | disposition home or self-care (01) | LOC: SC 08:54 | PROVIDERS: ATTEND Nurse Practitioner Family | DX: G47.10 Hypersomnia, unspecified (principal); R06.81 Apnea, not elsewhere classified; R41.89 Other symptoms and signs involving cognitive functions and awareness; R06.83 Snoring | CPT/HCPCS: 95806 ==

== ENCOUNTER 2020-10-08 11:31 | Outpatient (CLI) | payer BC ==
--- NOTE | 2020-10-08 11:43 | SLEEP CARE CONSULTATION ---
Information from patient questionnaire entered by Althea Donald. I have reviewed and concur with the information entered by Althea Donald. This document represents the service I personally performed and the decisions made by , Elizabeth Xiong ARNP. History of Present Illness Service Date and Time: 10/08/2020 1131 Initial [place] Sleepiness Scale score: 18 (in 2020) Current [place] Sleepiness Scale score: 12 Additional HPI information: TAMARA DUPONT returns via Telehealth visit for follow up and results of the recently performed home sleep study. The patient was informed of the following findings: no significant sleep disordered breathing with an average AHI of 3.3 and roxanne oxygen saturation of 81%. I explained the pathophysiology behind obstructive sleep apnea. Patient does not have sleep apnea and was advised how weight gain could increase the risk of developing sleep apnea in the future. Patient has light to moderate snoring. Snoring can be reduced by weight loss. Weight loss is best achieved with diet consult. Patient instructed to contact PCP for referral. Snoring can also be treated with an oral appliance from a dentist. Advised to check insurance coverage. In addition, an ENT evaluation can be do to see if other treatment is indicated. Patient counseled not drink alcohol less than 4 hours before bedtime as it can increase snoring and apnea. Patient was cautioned about risks of drowsy driving until sleepiness symptoms resolve. Sleep Study - Results Type of Sleep Study: Home sleep study Prior sleep studies: No Polysomnography/Home Sleep Study results: Physician Impression: The quality of the study is good. The length of the study is adequate (> 240 minutes). Please also see the tabulated and graphic data. 1. No significant sleep-disordered breathing, with an AHI of 3.3/hr and roxanne SaO2 of 81%. During the study, the patient had 14 apneas (13 obstructive, 1 central, 0 mixed) and 12 hypopneas. The longest episode lasted 151.0 seconds. The few respiratory events occurred independently of body position (supine AHI was 3.3 and non-supine, 3.36). 2. Hypoxemia (ICD-10 R09.02), mild, with the lowest oxygen saturation of 81 % and 13.6 minutes with SaO2 under 90%. Baseline oxygen saturation was normal (Average oxygen saturation was 92%). Allergies and Home Medications Home medication list reviewed: Yes (doxycycline, just stopped) Review of Systems Review of systems same as previous: Yes (abx for chronic abdominal infection) Physical Exam Vital signs obtained and entered by: Telehealth visit to reduce exposure during Covid pandemic Height: 5 ft 6.75 in Impression and Plan Snoring but no significant sleep disordered breathing. Patient advised that often weight loss will reduce snoring as well as apnea risk. An oral appliance can also be used for snoring. This would require a dental consultation. Patient cautioned not to use other online appliances as can cause bite issues. A list of accredited dentists in area and one local dentist who makes oral appliances given. Patient is advised to check if insurance will cover. An ENT consult can also be helpful to determine if any other treatment is an option. * Attempt to lose weight * Avoid alcohol consumption near bedtime * The patient is cautioned about driving until sleepiness is completely resolved. * Return in as needed for follow up. Counseling Topics: Weight loss health impact Visit Type: Telehealth Video Video Type: VSee Patient Location: Home Location of Provider: Office Patient agrees and consents to this telehealth visit type: Yes Patient agrees to have their insurance billed: Yes Time Spent with Patient (minutes): 16 Provider Statement: I spent 100% of the Telehealth Video Call with the patient with greater than 50% spent counseling the patient and coordination of care.
== END 2020-10-08 11:32 | disposition home or self-care (01) ==
LOC: SC 11:31
PROVIDERS: ATTEND Nurse Practitioner Family
DX: G47.10 Hypersomnia, unspecified (principal); R06.83 Snoring; R06.81 Apnea, not elsewhere classified; G47.8 Other sleep disorders; R41.89 Other symptoms and signs involving cognitive functions and awareness

== ENCOUNTER 2020-12-15 08:00 | Outpatient (CLI) | payer BC | END 2020-12-15 08:01 | disposition home or self-care (01) | LOC: LAB.WCP 08:00 | PROVIDERS: ATTEND Family Medicine | DX: Z01.84 Encounter for antibody response examination (principal) | CPT/HCPCS: 86769 ==

== ENCOUNTER 2021-01-29 11:18 | Outpatient (CLI) | payer OTHER, BC ==
--- NOTE | 2021-01-29 13:04 | XRAY Report ---
PROCEDURE: Forearm RT INDICATIONS: FOREARM PAIN, RIGHT TECHNIQUE: 2 views of the forearm were acquired. COMPARISON: None. FINDINGS: No acute fracture. First CMC and triscaphe joint degeneration. Chondrocalcinosis projecting in the ul nocarpal compartment. Tiny 2 mm calcification seen at the radial head potentially small fracture frag ment although technically indeterminate and unknown age. Nodular soft tissue swelling along the radial aspect of the forearm. Surgical clips incidentally note d. IMPRESSION: 2 mm calcific density projecting adjacent to the radial head as detailed above. Please correlate to p oint tenderness. Ill-defined nodular soft tissue swelling, presumably related to postsurgical changes from dialysis fi stula although please correlate clinically. Chondrocalcinosis of the right wrist. First CMC and triscaphe joint degeneration. Reviewed by: Evans Grier MD on 01/29/2021 1:02 PM PDT Approved by: Evans Grier MD on 01/29/2021 1:02 PM PDT Station ID: [id number]
== END 2021-01-29 11:19 | disposition home or self-care (01) ==
LOC: DI.N 11:18
PROVIDERS: ATTEND Family Medicine
DX: M19.031 Primary osteoarthritis, right wrist (principal); M11.231 Other chondrocalcinosis, right wrist; R22.31 Localized swelling, mass and lump, right upper limb; M25.831 Other specified joint disorders, right wrist; M18.11 Unilateral primary osteoarthritis of first carpometacarpal joint, right hand